=== PATIENT | male | born 1980 ===

== ENCOUNTER 2022-10-17 05:50 | Day surgery (SDC) | payer OTHER ==
[~2022-10-17] VITALS: Ht 182.9 cm; Wt 96.6 kg
== END 2022-10-17 13:30 | disposition home or self-care (01) ==
LOC: CIR.AMB 05:50
PROVIDERS: ATTEND Orthopaedic Surgery Hand Surgery
DX: T84.89XA Other specified complication of internal orthopedic prosthetic devices, implants and grafts, initial encounter (principal); M66.342 Spontaneous rupture of flexor tendons, left hand; S62.102A Fracture of unspecified carpal bone, left wrist, initial encounter for closed fracture; Z20.822 Contact with and (suspected) exposure to COVID-19; Z88.6 Allergy status to analgesic agent